=== PATIENT | female | born 1995 | race Asian ===

== ENCOUNTER 2018-05-04 20:33 | Emergency (ER) | payer BC, MEDICAID ==
[~2018-05-04] VITALS: Ht 170.2 cm; Wt 77.6 kg
[2018-05-04 21:28] LABS: Basophils # (auto) 0.1 uL; Basophils % (auto) 0.7 % (0.0-2.0); Eosinophils # (auto) 0.3 uL; Eosinophils % (auto) 2.9 % (0.0-7.0); Hemoglobin 13.7 g/dL (12.2-16.2); Lymphocytes # (auto) 2.8 uL; Lymphocytes % (auto) 29.5 % (10.0-50.0); Mean Corpuscular Hemoglobin 30.5 pg (28.0-32.0); Mean Corpuscular Hgb Conc. 34.2 g/dL (32.0-36.0); Mean Corpuscular Volume 89.4 fL (80.0-100.0); Monocytes # (auto) 0.7 uL; Monocytes % (auto) 7.2 % (0.0-12.0); Neutrophils # (auto) 5.7 uL; Neutrophils % (auto) 59.7 % (37.0-80.0); Nucleated Red Blood Cells % 0.1 %; Platelet Count (auto) 321 10^3/uL (140-450); Red Blood Cells 4.47 10^6/uL (4.0-5.20); Red Cell Distribution Width 14.3 % (11.8-14.3); White Blood Cell 9.6 10^3/uL (4.4-10.8)
[2018-05-04 21:54] LABS: Albumin 3.8 g/dL (3.4-5.0); BUN/Creatinine Ratio 13.2; Bilirubin, Total 0.3 mg/dL (0.2-1.0); Calcium 8.6 mg/dL (8.5-10.1); Potassium 3.8 mmol/L (3.5-5.1); Total Protein 8.1 g/dL (6.4-8.2)
[2018-05-04 22:03] LABS: Salicylate < 1.7 mg/dL (2.8-20.0)
[2018-05-04 22:04] LABS: Alcohol, Urine < 3.0 mg/dL (0-5); Amphetamine Screen, Urine NEGATIVE (NEGATIVE); Barbiturate Scree,Urine NEGATIVE (NEGATIVE); Benzodiazephine Screen, Urine NEGATIVE (NEGATIVE); Cannabinoid Screen, Urine NEGATIVE (NEGATIVE); Cocaine Screen, Urine NEGATIVE (NEGATIVE); Opiate Scree,Urine NEGATIVE (NEGATIVE); Phencyclidine Screen, Urine NEGATIVE (NEGATIVE)
[2018-05-04 22:10] LABS: Acetaminophen < 2.0 ug/mL (10-30)
[2018-05-04 22:15] LABS: Urine Pregnacy Test Negative (Negative)
[2018-05-04 23:17] LABS: Urine Specific Gravity 1.024 (1.001-1.035)
[2018-05-04 23:18] LABS: Urine Blood 3+ /uL (Negative); Urine WBC 84 /hpf (0 - 5)
[2018-05-04 23:19] LABS: Urine Amorphous Sediment Moderate /hpf; Urine Bacteria FEW /hpf (None Seen)
[2018-05-05 03:40] VITALS: BP 107/69
== END 2018-05-05 04:52 | disposition home or self-care (01) ==
LOC: EDBD 20:33 → ER 20:40
DX: F32.9 Major depressive disorder, single episode, unspecified (principal); F41.9 Anxiety disorder, unspecified; N39.0 Urinary tract infection, site not specified
CPT/HCPCS: 36415; 80053; 80307; 80320; 80329; 81001; 81025; 85025

== ENCOUNTER 2025-07-18 23:55 | Emergency (ER) | payer BC, MEDICAID ==
[~2025-07-18] VITALS: Ht 170.2 cm; Wt 76.7 kg
[2025-07-18 23:58] VITALS: TEMP 98.8
[2025-07-19 00:58] LABS: Urine Protein, UAD Negative (Negative)
[2025-07-19 01:12] LABS: Hematocrit 46.0 % (36.0-46.0); Hemoglobin 15.7 g/dL (12.2-16.2); Mean Corpuscular Hemoglobin 30.5 pg (28.0-32.0); Mean Corpuscular Volume 89.1 fL (80.0-100.0); Nucleated Red Blood Cells % 0.1 %
--- NOTE | 2025-07-19 01:18 | ED.PDOC ---
History of Present Illness HPI Comments 30-year-old female is vszyexx-bm-[id number]-mother for evaluation for self-harm behavior. Significant history for anxiety, bipolar disorder, depression, and previous suicidal attempt with psychiatric facility admission in January 2025. Patient reports on cutting her left thigh and lower leg multiple times following recent depressive episode onset, last night. Bleeding is controlled. Patient denies any current suicidal or homicidal ideations, auditory or visual hallucinations, or further acute symptoms at this time. Chief Complaint: Suicidal Time Seen by MD: 00:30 Reviewed Notes: Nurses Notes, Allergies Allergies: Coded Allergies: Immune Globulin (Verified Allergy, Unknown, 05/04/18) Information Source: Patient, Relative (Mother) Mode of Arrival: Ambulatory Severity: Moderate Timing: Hours Duration: Since onset Prehospital treatment: None Past Medical History PAST MEDICAL HISTORY: Anxiety, Depression Past Medical History (Other): Bipolar disorder Previous suicidal attempt with psychiatric admission Surgical History: Denies all surgeries WELT SOLE LAYER History: No Pertinent WELT SOLE LAYER History Family History Family History: Unknown Social History Smoker: Non-Smoker Alcohol: Denies ETOH Use Drugs: Denies Drug Use Lives In: Home Constitutional: denies: chills, diaphoresis, fatigue, fever, malaise, sweats, weakness, others EENTM: denies: blurred vision, double vision, ear bleeding, ear discharge, ear drainage, ear pain, ear ringing, eye pain, eye redness, hearing loss, mouth pain, mouth swelling, nasal discharge, nose bleeding, nose congestion, nose pain, photophobia, tearing, throat pain, throat swelling, voice changes, others Respiratory: denies: cough, hemoptysis, orthopnea, SOB at rest, shortness of breath, SOB with excertion, stridor, wheezing, others Cardiovascular: denies: chest pain, dizzy spells, diaphoresis, Dyspnea on exertion, edema, irregular heart beat, left arm pain, lightheadedness, palpitations, PND, syncope, others Gastrointestinal: denies: abdomen distended, abdominal pain, blood streaked bowels, constipated, diarrhea, dysphagia, difficulty swallowing, hematemesis, melena, nausea, poor appetite, poor fluid intake, rectal bleeding, rectal pain, vomiting, others Genitourinary: denies: abnormal vagina bleeding, burning, dyspareunia, dysuria, flank pain, frequency, hematuria, incontinence, pain, , vagina discharge, urgency, others Neurological: denies: dizziness, fainting, headache, left sided numbness, left sided weakness, numbness, paresthesia, pre-existing deficit, right sided numbness, right sided weakness, seizure, speech problems, tingling, tremors, weakness, others Musculoskeletal: denies: back pain, gout, joint pain, joint swelling, muscle pain, muscle stiffness, neck pain, others Integumetry: reports: laceration; denies: bruises, change in color, change in hair/nails, dryness, lesions, lumps, rash, wounds, others Allergic/Immunocompromised: denies: Difficulty Healing, Frequent Infections, Hives, Itching, others Hematologic/Lymphatic: denies: anemia, blood clots, easy bleeding, easy br uising, swollen glands, others Endocrine: denies: excessive hunger, excessive sweating, excessive thirst, excessive urination, flushing, intolerance to cold, intolerance to heat, unexplained weight gain, unexplained weight loss, others Psychiatric: reports: others (Self-harm ideations and behavior); denies: anxiety, bipolar disorder, depression, hopeless, panic disorder, schizophrenia, sleepless, suicidal All Other Systems: Reviewed and Negative Physical Exam General Appearance: No Apparent Distress, Normal HEENT: Normal ENT Inspection, Pharynx Normal, TMs Normal Neck: Full Range of Motion, Non-Tender, Normal, Normal Inspection Respiratory: Chest Non-Tender, Lungs Clear, No Accessory Muscle Use, No R espiratory Distress, Normal Breath Sounds Cardiovascular: No Edema, No JVD, No Murmur, No Gallop, Normal Peripheral Pulses, Regular Rate/Rhythm Breast Exam: Deferred Gastrointestinal: No Organomegaly, Non Tender, No Pulsatile Mass, Normal Bowel Sounds, Soft Genitalia: Deferred Pelvic: Deferred Rectal: Deferred Extremities: No calf tenderness, Normal capillary refill, Normal inspection, Normal range of motion, Non-tender, No pedal edema Musculoskeletal : Apperance: Normal Neurologic: Alert, financial services assistant II-XII nml as Tested, No Motor Deficits, Normal Affect, Normal Mood, No Sensory Deficits Cerebellar Function: Normal Reflexes: Normal Skin: Dry, Lacerations (3x 6 cm long, superficial lacerations extending from medial to distal side of left thigh.), Normal Color, Warm Lymphatic: No Adenopathy Was a procedure done? Was a procedure done?: No Differential Dx Considerations may include: anxiety, depression, hopelessness, suicide, among others X-Ray, Labs, Meds, VS Vital Signs Date Time Temp Pulse Resp B/P (MAP) Pulse Ox O2 Delivery O2 Flow Rate FiO2 07/18/25 23:58 98.8 97 18 129/80 98 98.8 Lab Test 07/19/25 01:01 07/19/25 00:37 Range/Units White Blood Count 9.9 4.4-10.8 10^3/uL Red Blood Count 5.16 4.0-5.20 10^6/uL Hemoglobin 15.7 12.2-16.2 g/dL Hematocrit 46.0 36.0-46.0 % Mean Corpuscular Volume 89.1 80.0-100.0 fL Mean Corpuscular Hemoglobin 30.5 28.0-32.0 pg Mean Corpuscular Hemoglobin Concent 34.2 32.0-36.0 g/dL Red Cell Distribution Width 15.2 H 11.8-14.3 % Platelet Count 402 140-450 10^3/uL Mean Platelet Volume 7.5 6.9-10.8 fL Neutrophils (%) (Auto) 65.5 37.0-80.0 % Lymphocytes (%) (Auto) 26.4 10.0-50.0 % Monocytes (%) (Auto) 5.7 0.0-12.0 % Eosinophils (%) (Auto) 1.6 0.0-7.0 % Basophils (%) (Auto) 0.8 0.0-2.0 % Neutrophils # (Auto) 6.4 1.6-8.6 10 ^3/uL Lymphocytes # (Auto) 2.6 0.4-5.4 10 ^3/uL Monocytes # (Auto) 0.6 0-1.3 10 ^3/uL Eosinophils # (Auto) 0.2 0-0.8 10 ^3/uL Basophils # (Auto) 0.1 0-0.2 10 ^3/uL Nucleated Red Blood Cells 0.1 % Sodium Level 141 136-145 mmol/L Potassium Level 3.7 3.5-5.1 mmol/L Chloride Level 107 98-107 mmol/L Carbon Dioxide Level 24 20-31 mmol/L Anion Gap 10 5-15 Blood Urea Nitrogen 5 L 9-23 mg/dL Creatinine 0.86 0.550-1.02 mg/dL Glomerular Filtration Rate Calc 94 >90 mL/min BUN/Creatinine Ratio 5.8 L 10.0-20.0 Serum Glucose 117 H 74-106 mg/dL Calcium Level 9.7 8.7-10.4 mg/dL Urine Color Yellow Yellow Urine Clarity Clear Clear Urine pH 6.0 5.0-9.0 Urine Specific [place] 1.041 H 1.001-1.035 Urine Protein Negative Negative Urine Ketones Trace Negative Urine Blood 2+ H Negative /uL Urine Nitrite Negative Negative Urine Bilirubin Negative Negative Urine Urobilinogen 2 H Negative mg/dL Urine Leukocyte Esterase Negative Negative /uL Urine RBC 3 0 - 4 /hpf Urine Microscopic WBC 5 0-5 /HPF Urine Squamous Epithelial Cells Few <5 /hpf Urine Bacteria None seen None Seen /hpf Urine Glucose 4+ H Normal mg/dL Urine Opiates Screen Neg NEGATIVE Urine Fentanyl Screen Neg NEGATIVE Urine Barbiturates Screen Neg NEGATIVE Urine Phencyclidine Screen Neg NEGATIVE Urine Amphetamines Screen Neg NEGATIVE Urine Benzodiazepines Screen Neg NEGATIVE Urine Cocaine Screen Neg NEGATIVE Urine Cannabinoids Screen Pos NEGATIVE X-Ray, Labs, Meds, VS Comment Spoke with Dr. Garcia, psychiatrist, he states that patient is safe to be discharged home. Patient is to continue taking her medications. Time of 1ST Reevaluation: 01:00 Reevaluation 1ST: Unchanged Patient Education/Counseling: Treatment, Need For Follow Up (Follow up with PCP as needed. Return to the emergency department if symptoms worsen.), Other (Need for ED observation) Family Education/Counseling: Treatment, Other (Need for ED observation) SEPSIS Sepsis Screen Date sepsis recognized/suspect: Jul 19, 2025 Time Sepsis recognized/suspect: 0002 Recent Procedure: No On Antibiotic Therapy: No Respiratory Rate >20: No Heart Rate >90: No Temp<36 C (96.8 F) or >38.3 C: No SBP <90 or MAP <65 mmHG: No New Acute Mental Status Change: No Is the patient on CPAP, BIPAP,: No Physician Orders *Tele Psych Consult (07/19/25 01:49) Vital Signs Date Time Temp Pulse Resp B/P (MAP) Pulse Ox O2 Delivery O2 Flow Rate FiO2 07/18/25 23:58 98.8 97 18 129/80 98 98.8 Laboratory Tests Test 07/19/25 01:01 White Blood Count 9.9 10^3/uL (4.4-10.8) Departure 1 Departure Time of Disposition: 02:57 Impression: Primary Impression: Borderline personality disorder Additional Impressions: Major depressive disorder Qualified Codes: F33.1 - Major depressive disorder, recurrent, moderate Self-harming behavior Disposition: 01 HOME / SELF CARE / HOMELESS Condition: Fair Discharged With: Self Critical Care Note Critical Care Time?: No Stability Stability form required: No Heart Score Heart Score: Heart Score Response (Comments) Value History N/A 0 EKG N/A 0 Age N/A 0 Risk Factors N/A 0 Troponin N/A 0 Total 0 I personally scribed for CEDRIC RUANO ([email or web address]) on 07/19/25 at 01:18. Electronically submitted by Luther Blandon [email or web address]). CEDRIC RUANO Jul 19, 2025 01:18
[2025-07-19 01:22] LABS: Potassium 3.7 mmol/L (3.5-5.1); Sodium 141 mmol/L (136-145)
[2025-07-19 01:23] LABS: Anion Gap 10 (5-15); Calcium 9.7 mg/dL (8.7-10.4); Carbon Dioxide 24 mmol/L (20-31)
[2025-07-19 01:26] LABS: Chloride 107 mmol/L (98-107)
[2025-07-19 01:28] LABS: BUN/Creatinine Ratio 5.8 (10.0-20.0)
[2025-07-19 01:36] LABS: Cannabinoid Screen, Urine Pos (NEGATIVE)
[2025-07-19 01:37] LABS: Blood Urea Nitrogen 5 mg/dL (9-23); Glucose 117 mg/dL (74-106)
[2025-07-19 01:40] LABS: Amphetamine Screen, Urine Neg (NEGATIVE); Barbiturate Scree,Urine Neg (NEGATIVE); Benzodiazephine Screen, Urine Neg (NEGATIVE); Cocaine Screen, Urine Neg (NEGATIVE); Opiate Scree,Urine Neg (NEGATIVE); Phencyclidine Screen, Urine Neg (NEGATIVE)
--- NOTE | 2025-07-19 02:57 | DVHINCON2 ---
Date of Service if different f: Jul 19, 2025 Time of Service: 02:37 Consultation ([facility]) Consulting Physician: ISIS LEROY MD Labs Laboratory Tests Test 07/19/25 00:37 07/19/25 01:01 Urine Color Yellow (Yellow) Urine Clarity Clear (Clear) Urine pH 6.0 (5.0-9.0) Urine Specific [place] 1.041 (1.001-1.035) Urine Protein Negative (Negative) Urine Ketones Trace (Negative) Urine Blood 2+ /uL (Negative) Urine Nitrite Negative (Negative) Urine Bilirubin Negative (Negative) Urine Urobilinogen 2 mg/dL (Negative) Urine Leukocyte Esterase Negative /uL (Negative) Urine RBC 3 /hpf (0 - 4) Urine Microscopic WBC 5 /HPF (0-5) Urine Squamous Epithelial Cells Few /hpf (<5) Urine Bacteria None seen /hpf (None Seen) Urine Glucose 4+ mg/dL (Normal) Urine Opiates Screen Neg (NEGATIVE) Urine Fentanyl Screen Neg (NEGATIVE) Urine Barbiturates Screen Neg (NEGATIVE) Urine Phencyclidine Screen Neg (NEGATIVE) Urine Amphetamines Screen Neg (NEGATIVE) Urine Benzodiazepines Screen Neg (NEGATIVE) Urine Cocaine Screen Neg (NEGATIVE) Urine Cannabinoids Screen Pos (NEGATIVE) White Blood Count 9.9 10^3/uL (4.4-10.8) Red Blood Count 5.16 10^6/uL (4.0-5.20) Hemoglobin 15.7 g/dL (12.2-16.2) Hematocrit 46.0 % (36.0-46.0) Mean Corpuscular Volume 89.1 fL (80.0-100.0) Mean Corpuscular Hemoglobin 30.5 pg (28.0-32.0) Mean Corpuscular Hemoglobin Concent 34.2 g/dL (32.0-36.0) Red Cell Distribution Width 15.2 % (11.8-14.3) Platelet Count 402 10^3/uL (140-450) Mean Platelet Volume 7.5 fL (6.9-10.8) Neutrophils (%) (Auto) 65.5 % (37.0-80.0) Lymphocytes (%) (Auto) 26.4 % (10.0-50.0) Monocytes (%) (Auto) 5.7 % (0.0-12.0) Eosinophils (%) (Auto) 1.6 % (0.0-7.0) Basophils (%) (Auto) 0.8 % (0.0-2.0) Neutrophils # (Auto) 6.4 10 ^3/uL (1.6-8.6) Lymphocytes # (Auto) 2.6 10 ^3/uL (0.4-5.4) Monocytes # (Auto) 0.6 10 ^3/uL (0-1.3) Eosinophils # (Auto) 0.2 10 ^3/uL (0-0.8) Basophils # (Auto) 0.1 10 ^3/uL (0-0.2) Nucleated Red Blood Cells 0.1 % Sodium Level 141 mmol/L (136-145) Potassium Level 3.7 mmol/L (3.5-5.1) Chloride Level 107 mmol/L (98-107) Carbon Dioxide Level 24 mmol/L (20-31) Anion Gap 10 (5-15) Blood Urea Nitrogen 5 mg/dL (9-23) Creatinine 0.86 mg/dL (0.550-1.02) Glomerular Filtration Rate Calc 94 mL/min (>90) BUN/Creatinine Ratio 5.8 (10.0-20.0) Serum Glucose 117 mg/dL (74-106) Calcium Level 9.7 mg/dL (8.7-10.4) Psychomotor activity: WNL, Calm Behavioral: Cooperative Eye contact: Appropriate Speech: WNL Affect: Appropriate, Mood Congruent Mood: Depressed Thought processes: Linear/Goal-directed Thought content: WNL Suicidal ideations: Absent Homicidal ideations: Absent Orientation: Person, Place, Time, Situation Memory intact: Recent Intellect: Average Abstractability: WNL Concentration: Adequate Attention: Adequate Judgement: WNL Insight: Fair Vitals Vital Signs Date Time Temp Pulse Resp B/P (MAP) Pulse Ox O2 Delivery O2 Flow Rate FiO2 07/18/25 23:58 98.8 97 18 129/80 98 98.8 Treatment plan discussed: With staff Medication adjusted: No Labs ordered: No Psychotherapy provided: No Type: Voluntary History of Present Illness Reason for Consult : psychiatric evaluation Per ED PROOF CARRIER: 30-year-old female is fxconwv-lb-di-mother for evaluation for self- harm behavior. Significant history for anxiety, bipolar disorder, depression, and previous suicidal attempt with psychiatric facility admission in January 2025. Patient reports on cutting her left thigh and lower leg multiple times following recent depressive episode onset, last night. Bleeding is controlled. Patient denies any current suicidal or homicidal ideations, auditory or visual hallucinations, or further acute symptoms at this time. Psychiatrist HPI: The patient was seen and evaluated at [facility] ED via telepsychiatry platform. 30 yr old female reported she cut her leg and her mother put some neosporin on the cuts. She cut her leg with scissors because "she was having episode." She called it "a borderline episode and my emotions got the best of me." She denied that this was a suicide attempt. She denied having any suicidal ideation, plan or intent. She stated she feels comfortable returning home and plans to look into getting TMS as she feels she has been on various antidepressants but still deals with depression. . She denied having any homicidal or suicidal ideation and denied having auditory or visual hallucinations. Past Psychiatric History : Diagnosed with borderline PD and MDD since 2018. Attended an [facility]. Four hospitalizations, last in January 23. Suicide attempt in 2023 by OD on antidepressants. Past Medical History: diabetes, high cholesterol Current Medications: ozempic 2mg qwk, atorvastatin, Jardiance, [place] 900mg qhs, Lamotrigine 50mg daily, cymbalta 60mg qam Substance use: Smokes MJ a couple times a month. Denied use of alcohol and other substance use. Social History : Lives in [place] with parents. Never , no children. Attended three years at [employer]. Works at two retail jobs. Diagnosis: Borderline Personality Disorder; Unspecified depressive disorder Formulation: This 30 yr old female appears to suffer from borderline personality disorder and depression. She had a borderline episode earlier today, but is not currently suicidal and does not warrant hospitlization. She may benefit from continuing on her outpatient medications and following up with her psychiatrist. Plan: 1.Safety. The patient is a low risk for self-harm and may be managed as an outpatient. 2. Legal-Voluntary status. 3. Medication: Continue present outpatient regimen. Follow up with outpatient mental health for medication management and therapy. 4. Contact psychiatry if further evaluation or follow up is desired. 5. case discussed with ED REGAN Welch. Assessment/Diagnosis/Plan Reviewed: Labs, Medications, Previous Orders ISIS LEROY MD Jul 19, 2025 02:25
[2025-07-19] MEDS: BACITRACIN TOP OINT 1 UD PKG TOP ONE (03:38)
[2025-07-19 03:51] VITALS: BP 130/86
[2025-07-19 03:52] VITALS: PULSE 92; RESP 10; O2SAT 99
== END 2025-07-19 03:56 | disposition home or self-care (01) ==
LOC: ER 23:55
DX: F60.3 Borderline personality disorder (principal); F32.9 Major depressive disorder, single episode, unspecified; S71.112A Laceration without foreign body, left thigh, initial encounter; E11.9 Type 2 diabetes mellitus without complications; E78.00 Pure hypercholesterolemia, unspecified; F41.9 Anxiety disorder, unspecified; F17.200 Nicotine dependence, unspecified, uncomplicated; Z79.899 Other long term (current) drug therapy; X58.XXXA Exposure to other specified factors, initial encounter; Y93.89 Activity, other specified; Y92.89 Other specified places as the place of occurrence of the external cause; Y99.8 Other external cause status
CPT/HCPCS: 36415; 80048; 80307; 81001; 85025